=== PATIENT | female | born 1985 | race Caucasian/White ===

== ENCOUNTER 2017-07-07 18:46 | Emergency (ER) | payer BC ==
[~2017-07-07] VITALS: Ht 177.8 cm; Wt 152.9 kg
[~2017-07-07 18:46] MED LIST: ACETAZOLAMIDE500 MG PO; ASPIR-LOW81 MG PO; DIUREX WATER P1 EACH PO; EXCEDRIN MIGRA1 EAC3 PO; FOLIC ACID0.4 MG PO; IMMUNE BOOSTER PO; IRON325 M1 PO; OXCARBAZEPINE300 MG PO; PRENATAL TABLE1 EAC3 PO
[2017-07-07] MEDS ORDERED: PEN-VEE K,VEET500 MG PO (22:24)
[2017-07-07 22:41] VITALS: BP 147/89
== END 2017-07-07 22:43 | disposition home or self-care (01) ==
LOC: EXP 18:46 → EME 18:46 → EXP 22:43
PROC: 3E0T3BZ Introduction of Anesthetic Agent into Peripheral Nerves and Plexi, Percutaneous Approach (ICD-10-PCS; principal; 2017-07-07)
DX: K08.89 Other specified disorders of teeth and supporting structures (principal); I10 Essential (primary) hypertension; G50.0 Trigeminal neuralgia; Z87.891 Personal history of nicotine dependence; Z88.6 Allergy status to analgesic agent; Z88.8 Allergy status to other drugs, medicaments and biological substances
CPT/HCPCS: 99281; 99283

== ENCOUNTER 2018-02-15 17:12 | Emergency (ER) | payer BC ==
[~2018-02-15] VITALS: Ht 177.8 cm; Wt 156.0 kg
[~2018-02-15 17:12] MED LIST changes: +PEN-VEE K,VEET500 MG PO
[2018-02-15 17:37] LABS: APPEARANCE CLEAR ((CLEAR)); BILIRUBIN NEGATIVE; BLOOD MODERATE; COLOR AMBER ((YELLOW)); GLUCOSE (STRIP) NEGATIVE; KETONES NEGATIVE; LEUKOCYTES NEGATIVE; NITRITE POSITIVE; PROTEIN (STRIP) NEGATIVE; SPECIFIC GRAVITY 1.009 (1.000-1.030)
[2018-02-15 17:42] LABS: BACTERIA RARE /HPF; EPITHELIAL CELLS RARE /HPF; MUCUS NONE SEEN /LPF; RED BLOOD CELLS 0-5 /HPF (0-5); UCUL ADDED? NO; WHITE BLOOD CELLS 0-5 /HPF (0-5)
[2018-02-15 17:54] LABS: HEMATOCRIT 38.6 % (36.0-46.0); HEMOGLOBIN 12.6 G/DL (11.9-15.5); MCH 25.6 PG (29.0-34.0); MCHC 32.6 G/DL (30.0-36.0); MCV 78.3 FL (83-99); PLATELET COUNT 337 K/uL (156-360); RBC DIS.WIDTH-CV 16.2 % (11.8-14.6); RBC DIS.WIDTH-SD 45.6 % (39-53); RED BLOOD COUNT 4.93 M/uL (3.80-5.20); WHITE BLOOD COUNT 9.7 K/uL (4.1-10.2)
[2018-02-15 18:04] LABS: CHLORIDE 105 mEq/L (99-109); SODIUM 142 mEq/L (136-147)
[2018-02-15 18:06] LABS: GLUCOSE 92 mg/dL (70-99)
[2018-02-15 18:10] LABS: CREATININE 0.8 mg/dL (0.6-1.3); GFR ESTIMATE (CALCULATED) > 59 mL/min/
[2018-02-15 18:11] LABS: UREA NITROGEN (BUN) 13 mg/dL (9-23)
[2018-02-15 18:19] LABS: QUANTITATIVE HCG < 4.0 MIU/ML
[2018-02-15] MEDS ORDERED: KEFLEX500 MG PO (19:37)
[2018-02-15 20:01] VITALS: BP 160/79
== END 2018-02-15 20:02 | disposition home or self-care (01) ==
LOC: EME 17:12 → RME 17:12
DX: N39.0 Urinary tract infection, site not specified (principal); R31.9 Hematuria, unspecified; M43.17 Spondylolisthesis, lumbosacral region; F17.200 Nicotine dependence, unspecified, uncomplicated
CPT/HCPCS: 74176; 80048; 81003; 84702; 85027; 87086; 99281; 99284; J7030

== ENCOUNTER 2018-03-03 12:47 | Emergency (ER) | payer BC ==
[~2018-03-03] VITALS: Ht 177.8 cm; Wt 156.9 kg
[~2018-03-03 12:47] MED LIST changes: +KEFLEX500 MG PO
[2018-03-03 13:46] LABS: HEMATOCRIT 40.1 % (36.0-46.0); HEMOGLOBIN 12.6 G/DL (11.9-15.5); MCH 24.6 PG (29.0-34.0); MCHC 31.4 G/DL (30.0-36.0); MCV 78.3 FL (83-99); RBC DIS.WIDTH-CV 15.7 % (11.8-14.6); RBC DIS.WIDTH-SD 44.6 % (39-53); RED BLOOD COUNT 5.12 M/uL (3.80-5.20); WHITE BLOOD COUNT 5.7 K/uL (4.1-10.2)
[2018-03-03 13:55] LABS: ALBUMIN 3.8 g/dL (3.2-4.8); CHLORIDE 104 mEq/L (99-109); POTASSIUM 4.1 mEq/L (3.7-5.4); SODIUM 138 mEq/L (136-147)
[2018-03-03 13:58] LABS: GLUCOSE 97 mg/dL (70-99); TOTAL PROTEIN 7.6 g/dL (6.4-8.3)
[2018-03-03 13:58] LABS: APPEARANCE SL.HAZY ((CLEAR)); BILIRUBIN NEGATIVE; BLOOD MODERATE; COLOR YELLOW ((YELLOW)); GLUCOSE (STRIP) NEGATIVE; KETONES NEGATIVE; LEUKOCYTES TRACE; NITRITE NEGATIVE; PROTEIN (STRIP) NEGATIVE; SPECIFIC GRAVITY 1.006 (1.000-1.030); UROBILINOGEN 0.2 MG/DL (0.2-1.0)
[2018-03-03 14:00] LABS: TOTAL BILIRUBIN 0.2 mg/dL (0.0-1.0)
[2018-03-03 14:01] LABS: ALKALINE PHOSPHATASE 82 IU/L (3-129); CREATININE 0.8 mg/dL (0.6-1.3); GFR ESTIMATE (CALCULATED) > 59 mL/min/
[2018-03-03 14:02] LABS: UREA NITROGEN (BUN) 9 mg/dL (9-23)
[2018-03-03 14:03] LABS: AST (GOT) 22 IU/L (2-34)
[2018-03-03 14:04] LABS: ALT (GPT) 21 IU/L (3-49)
[2018-03-03 14:05] LABS: LIPASE 18 U/L (1.0-51.0)
[2018-03-03 14:06] LABS: BACTERIA RARE /HPF; EPITHELIAL CELLS 2+ /HPF; MUCUS NONE SEEN /LPF; RED BLOOD CELLS 0-5 /HPF (0-5); UCUL ADDED? NO; WHITE BLOOD CELLS 0-5 /HPF (0-5)
[2018-03-03 14:15] LABS: QUANTITATIVE HCG < 4.0 MIU/ML
[2018-03-03 15:00] LABS: HEMATOLOGY COMMENT 1 SMEAR COMPATIBLE; PLAT.SUFFICIENCY ADEQUATE
[2018-03-03 15:15] LABS: PLATELET COUNT 232 K/uL (156-360)
[2018-03-03] MEDS ORDERED: NAPROSYN500 MG PO (16:10)
[2018-03-03 16:14] VITALS: BP 158/105
== END 2018-03-03 16:23 | disposition home or self-care (01) ==
LOC: EME 12:47
DX: R10.84 Generalized abdominal pain (principal); N83.201 Unspecified ovarian cyst, right side; R31.29 Other microscopic hematuria; I10 Essential (primary) hypertension; Z87.440 Personal history of urinary (tract) infections; Z88.6 Allergy status to analgesic agent; F17.200 Nicotine dependence, unspecified, uncomplicated
CPT/HCPCS: 74176; 80053; 81003; 83605; 83690; 84702; 85027; 87086; 99281; 99285; J2405; J3010; J7030